=== PATIENT | male | born 1970 | race Caucasian/White ===

== ENCOUNTER 2020-08-13 08:12 | Outpatient (CLI) | payer OTHER | END 2020-08-13 08:13 | disposition home or self-care (01) | LOC: BICMRI 08:12 | PROVIDERS: ATTEND Neurological Surgery | DX: M47.22 Other spondylosis with radiculopathy, cervical region (principal); M48.02 Spinal stenosis, cervical region | CPT/HCPCS: 72141 ==

== ENCOUNTER 2020-11-01 14:50 | Outpatient (CLI) | payer OTHER ==
[2020-11-01 16:28] LABS: #Basophils 0.1 10x3/uL (0.0-0.2); #Eosinphils 0.2 10x3/uL (0.0-0.5); #Monocytes 0.7 10x3/uL (0.0-1.1); #Neutrophils 3.8 10x3/uL (1.5-8.4); %Eosinophils 2.6 % (0.0-6.0); %Lymphocytes 35.2 % (18.0-47.0); %Monocytes 9.6 % (0.0-10.0); %Neutrophils 51.2 % (40.0-75.0); Hemoglobin 14.1 g/dL (13.5-17.5); Mean Corpuscular HGB CONC 32.8 g/dL (32.0-36.0); Mean Corpuscular Hemoglobin 30.7 pg (27.0-33.0); Mean Corpuscular Volume 93.5 fl (81.2-95.1); Mean Platelet Volume 10.7 fl (7.4-10.4); Platelet Count 272 10x3/uL (150-450); RBC Distribution Width 13.2 % (11.5-14.5); White Blood Cell (WBC) Count 7.3 10x3/uL (3.5-10.5)
[2020-11-02 15:25] LABS: SARS-CoV-2 PCR by NAA Not Detected (NotDetected)
== END 2020-11-01 14:51 | disposition home or self-care (01) ==
LOC: LABBT 14:50
PROVIDERS: ATTEND Orthopaedic Surgery
DX: Z01.812 Encounter for preprocedural laboratory examination (principal); G56.03 Carpal tunnel syndrome, bilateral upper limbs; G56.21 Lesion of ulnar nerve, right upper limb; Z20.822 Contact with and (suspected) exposure to COVID-19
CPT/HCPCS: 85025; U0003; U0005

== ENCOUNTER 2020-11-06 06:06 | Day surgery (SDC) | payer OTHER ==
[2020-11-05 10:29] VITALS: BMI 29.5
[2020-11-06] MEDS ORDERED: Lidocaine 1% w/Epinephrine 1:100K 20 ML VIAL ONE (06:43)
[2020-11-06] MEDS ORDERED: Fentanyl 100 MCG/2 ML VIAL ONE ×2 (07:28→10:05)
[2020-11-06] MEDS ORDERED: Midazolam HCl 2 mg/2 ml Vial ONE (07:28)
[2020-11-06] MEDS ORDERED: Dexamethasone 20 MG/5 ML VIAL ONE (08:10)
[2020-11-06] MEDS ORDERED: Lidocaine 1% PF 5 ML VIAL ONE (08:10)
[2020-11-06] MEDS ORDERED: Ondansetron PF 4 MG/2 ML Vial ONE (08:10)
[2020-11-06] MEDS ORDERED: PROPOFOL 200 MG/20 ML VIAL ONE (08:10)
== END 2020-11-06 11:25 | disposition home or self-care (01) ==
LOC: SDC 06:06
PROVIDERS: ATTEND Orthopaedic Surgery
PROC: 01N50ZZ Release Median Nerve, Open Approach (ICD-10-PCS; principal; 2020-11-06)
PROC: 01N40ZZ Release Ulnar Nerve, Open Approach (ICD-10-PCS; principal; 2020-11-06)
DX: G56.03 Carpal tunnel syndrome, bilateral upper limbs (principal); G56.21 Lesion of ulnar nerve, right upper limb; M19.90 Unspecified osteoarthritis, unspecified site; G89.29 Other chronic pain; G43.909 Migraine, unspecified, not intractable, without status migrainosus; Z79.899 Other long term (current) drug therapy; Z88.1 Allergy status to other antibiotic agents
CPT/HCPCS: J0690; J1100; J2250; J2405; J2704; J3010

== ENCOUNTER 2022-04-08 12:17 | Outpatient (CLI) | payer BC | END 2022-04-08 12:18 | disposition home or self-care (01) | LOC: RAD 12:17 | PROVIDERS: ATTEND Nurse Practitioner Family | DX: M25.511 Pain in right shoulder (principal); M19.011 Primary osteoarthritis, right shoulder ==

== ENCOUNTER 2023-08-08 08:36 | Emergency (ER) | payer BC, OTHER ==
[2023-08-08] MEDS ORDERED: Ketorolac Tromethamine 30 MG (1 mL) VIAL ONE (09:28)
== END 2023-08-08 09:52 | disposition home or self-care (01) ==
LOC: ERS 08:36
DX: M25.462 Effusion, left knee (principal); M25.562 Pain in left knee; M71.562 Other bursitis, not elsewhere classified, left knee; E03.9 Hypothyroidism, unspecified; Z79.899 Other long term (current) drug therapy
CPT/HCPCS: 96372; J1885